=== PATIENT | male | born 1995 | race American Indian/Alaskan Native ===

== ENCOUNTER 2017-02-17 13:59 | Emergency (ER) | payer OTHER ==
[2017-02-17 14:33] VITALS: RESP 16; TEMP 98.7; O2SAT 98; BMI 23.1
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
[2017-02-17] MEDS ORDERED: Oxycodone/Acetaminophen 5/325 mg Tab PO STA (14:42)
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
[2017-02-17 16:42] VITALS: BP 131/73; PULSE 54
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
== END 2017-02-17 17:10 | disposition home or self-care (01) ==
LOC: ED 13:59
DX: S00.91XA Abrasion of unspecified part of head, initial encounter (principal); S40.211A Abrasion of right shoulder, initial encounter; S80.212A Abrasion, left knee, initial encounter; S80.211A Abrasion, right knee, initial encounter; Y08.89XA Assault by other specified means, initial encounter; Y93.01 Activity, walking, marching and hiking; Y92.410 Unspecified street and highway as the place of occurrence of the external cause; M25.511 Pain in right shoulder

== ENCOUNTER 2018-09-19 16:07 | Emergency (ER) | payer SELFPAY ==
[2018-09-19 16:21] VITALS: BMI 26.2
[2018-09-19 16:24] VITALS: RESP 18
[2018-09-19] MEDS ORDERED: Sodium Chloride 0.9% 1,000 ML IV STA (16:36)
[2018-09-19] MEDS ORDERED: DiphenhydrAMINE 50 mg/ml Inj IVP STA (16:45)
--- NOTE | 2018-09-19 18:03 | ED PDOC ---
Arrival/HPI - General Chief Complaint: Headache Historian: Patient - History of Present Illness Narrative History of Present Illness (Text): 09/19/18 17:36 23 year old M w/ h/o headaches presenting to the Emergency Room with gradual onset of diffuse global headache. Patient states he had been having headache for the last 3 hours with no relief. He reports associated phonophobia, photophobia, visual disturbances and nausea. He denies emesis, fevers, chills, syncopal episodes, recent sexual activity, recent physical activity. He denies attempting to take any medications for his headache. Time/Duration: 1-3 hours Symptom Onset: Sudden Symptom Course: Unchanged Quality: Aching Severity Level: Severe Activities at Onset: Rest Context: Home Past Medical History - Provider Review Nursing Documentation Reviewed: Yes - Travel History Have you recently traveled outside [place] w/in the past 3 mons?: No - Infectious Disease Hx of Infectious Diseases: None - Psychiatric Hx Substance Use: No - Anesthesia Hx Anesthesia: No Hx Anesthesia Reactions: No Hx Malignant Hyperthermia: No Family/Social History - Physician Review Nursing Documentation Reviewed: Yes Family/Social History: Unknown Family HX Smoking Status: Current Some Days Smoker Hx Alcohol Use: No Hx Substance Use: No Allergies/Home Meds Allergies/Adverse Reactions: Allergies No Known Allergies Allergy (Verified 09/19/18 16:20) Physical Exam Vital Signs Temp Pulse Resp BP Pulse Ox 09/19/18 16:23 97.5 F L 50 L 18 166/78 H 97 Medical Decision Making - Medication Orders Current Medication Orders: Discontinued Medications Diphenhydramine HCl (Benadryl) 25 mg IVP STAT STA Stop: 09/19/18 16:46 Last Admin: 09/19/18 17:09 Dose: 25 mg IVP Administration Document 09/19/18 17:09 LA (Rec: 09/19/18 17:09 LA [id number]) Charges for Administration # of IVP Administrations 1 Sodium Chloride (Sodium Chloride 0.9%) 1,000 mls @ 999 mls/hr IV .Q1H1M STA Stop: 09/19/18 17:36 Last Admin: 09/19/18 17:06 Dose: 999 mls/hr eMAR Start Stop Document 09/19/18 17:06 LA (Rec: 09/19/18 17:08 LA [id number]) Intravenous Solution Start Date 09/19/18 Start Time 17:08 End Date 09/19/18 End time 18:09 Total Infusion Time 61 Ketorolac Tromethamine (Toradol) 30 mg IVP STAT STA Stop: 09/19/18 16:37 Last Admin: 09/19/18 17:08 Dose: 30 mg MAR Pain Assessment Document 09/19/18 17:08 LA (Rec: 09/19/18 17:09 LA [id number]) Pain Reassessment Is this a pain reassessment? No Sleep Is patient sleeping during reassessment? No Presence of Pain Presence of Pain Yes Pain Scale Used Protocol: PSCALES Pain Scale Used Numeric Location Pain Location Body Prune Washer Description Intensity of Pain at present 10 IVP Administration Document 09/19/18 17:08 LA (Rec: 09/19/18 17:09 [id number]) Charges for Administration # of IVP Administrations 1 Metoclopramide HCl (Reglan) 10 mg IVP STAT STA Stop: 09/19/18 16:37 Last Admin: 09/19/18 17:09 Dose: 10 mg IVP Administration Document 09/19/18 17:09 LA (Rec: 09/19/18 17:09 LA [id number]) Charges for Administration # of IVP Administrations 1 Disposition/Present on Arrival - Present on Arrival Any Indicators Present on Arrival: No History of DVT/PE: No History of Uncontrolled Diabetes: No Urinary Catheter: No History of Decub. Ulcer: No History Surgical Site Infection Following: None - Disposition Have Diagnosis and Disposition been Completed?: Yes Diagnosis: Tension headache Disposition: HOME/ ROUTINE Disposition Time: 18:50 Patient Plan: Discharge Patient Problems: Current Active Problems Problem Status Onset Tension headache Acute Condition: IMPROVED Discharge Instructions (ExitCare): Headache, Adult (DC), Tension Headache (DC) Print Language: GREENLANDIC Prescriptions: Ibuprofen [Motrin] 600 mg PO Q6H #12 tab Metoclopramide HCl [Reglan] 10 mg PO PRN PRN #12 tablet PRN Reason: Nausea/Vomiting Referrals: Madeline Rapp MD [Primary Care Provider] - Follow up with primary Forms: [email or web address] (German), SCHOOL NOTE, WORK NOTE
[2018-09-19 21:52] VITALS: BP 153/75; PULSE 61; TEMP 97.6; O2SAT 100
== END 2018-09-19 19:25 | disposition home or self-care (01) ==
LOC: ED 16:07
DX: G44.209 Tension-type headache, unspecified, not intractable (principal)
CPT/HCPCS: 96361; 96374; 96375; 99285; J1200; J1885; J2765; J7030